=== PATIENT | male | born 1980 | race African-American/Black ===

== ENCOUNTER 2018-07-29 13:05 | Emergency (ER) | payer MEDICAID ==
[~2018-07-29] VITALS: Ht 167.6 cm; Wt 84.0 kg
[2018-07-29] MEDS ORDERED: SODIUM CHLORIDE 0.9% 1,000 ML IV ONE (15:03)
[2018-07-29] MEDS ORDERED: ONDANSETRON HCL 4MG/2ML INJ IV STA (15:03)
[2018-07-29 15:50] LABS: BASOPHILS % 0.7 % (0.0-2.0); EOSINOPHILS % 2.7 % (0.0-5.0); HEMATOCRIT. 44.6 % (42.0-52.0); HEMOGLOBIN. 14.7 g/dL (14.0-18.0); LYMPHOCYTES % 38.9 % (20.0-50.0); MEAN CORPUSCULAR HEMOGLOBIN 28.4 pg (28.0-32.0); MEAN CORPUSCULAR VOLUME 86.3 fL (80.0-94.0); MEAN PLATELET VOLUME 10.3 fl (7.4-10.4); MONOCYTES % 14.9 % (2.0-8.0); NEUTROPHILS % 42.8 % (40.0-76.0); PLATELET 153 x1000/uL (130-400); RED BLOOD CELL COUNT 5.18 mill/uL (4.7-6.1); RED CELL DISTRIBUTION WIDTH 13.8 % (11.6-14.6)
[2018-07-29 15:53] LABS: CHLORIDE 104 mEq/L (98-107)
[2018-07-29 15:55] LABS: INR 1.2; PARTIAL THROMBOPLASTIN TIME 25.3 sec (23.4-31.0); PROTHROMBIN TIME 12.3 sec (9.6-11.0)
[2018-07-29 15:57] LABS: CLARITY URINE CLEAR (CLEAR); COLOR URINE DARK YELLOW (YELLOW); KETONES URINE 3+ (NEGATIVE); LEUKOCYTE ESTERASE URINE NEGATIVE (NEGATIVE); NITRITE URINE NEGATIVE (NEGATIVE); OCCULT BLOOD URINE NEGATIVE (NEGATIVE); PROTEIN URINE TRACE (NEGATIVE); SPECIFIC GRAVITY URINE 1.037 (1.005-1.030)
[2018-07-29 15:57] LABS: ETHANOL BLOOD < 10 mg/dL
[2018-07-29 16:02] LABS: CREATINE KINASE 394 IU/L (39-308)
[2018-07-29 16:05] LABS: CREATINE KINASE MB FRACTION < 1.0 ng/mL (0.5-3.6)
[2018-07-29 16:05] LABS: *BARBITURATES SCREEN URINE NEGATIVE (NEGATIVE)
[2018-07-29 16:06] LABS: *AMPHETAMINES SCREEN URINE NEGATIVE (NEGATIVE); *BENZODIAZEPINES SCREEN URINE NEGATIVE (NEGATIVE); *COCAINE SCREEN URINE NEGATIVE (NEGATIVE); CANNABINOID URINE SCREEN PRESUMTIVE POSITIVE (NEGATIVE); METHADONE URINE SCREEN NEGATIVE (NEGATIVE); OPIATES URINE SCREEN NEGATIVE (NEGATIVE); PHENCYCLIDINE URINE SCREEN NEGATIVE (NEGATIVE)
[2018-07-29 16:18] LABS: MONOTEST NEGATIVE (NEGATIVE)
[2018-07-29 18:10] VITALS: BP 116/62
== END 2018-07-29 18:15 | disposition home or self-care (01) ==
LOC: ER 14:00
DX: E86.0 Dehydration (principal); R11.2 Nausea with vomiting, unspecified; F17.200 Nicotine dependence, unspecified, uncomplicated; F12.10 Cannabis abuse, uncomplicated
CPT/HCPCS: 36415; 71045; 80053; 80305; 80320; 81003; 82550; 82553; 83690; 83880; 84443; 84484; 85025; 85610; 85730; 86308; 93005; 96361; 96374; 99284; J2405; J7030; Z7610; G0480

== ENCOUNTER 2018-10-02 14:32 | Emergency (ER) | payer MEDICAID ==
[~2018-10-02] VITALS: Ht 170.2 cm; Wt 90.7 kg
[2018-10-02] MEDS ORDERED: CEFTRIAXONE SODIUM 250 MG/VIAL IM ONE (18:30)
[2018-10-02] MEDS ORDERED: LIDOCAINE HCL 1% 20ML VIAL (Pyxis) INJ INFIL ONE (18:30)
[2018-10-02] MEDS ORDERED: AZITHROMYCIN 500 MG TABLET PO ONE (18:30)
[2018-10-02 18:50] VITALS: BP 118/64
== END 2018-10-02 18:51 | disposition home or self-care (01) ==
LOC: ER 14:32
DX: Z20.2 Contact with and (suspected) exposure to infections with a predominantly sexual mode of transmission (principal); F12.10 Cannabis abuse, uncomplicated; K21.9 Gastro-esophageal reflux disease without esophagitis; F17.290 Nicotine dependence, other tobacco product, uncomplicated
CPT/HCPCS: 96372; 99283; 99406; J0696; J3490

== ENCOUNTER 2019-11-04 21:53 | Emergency (ER) | payer MEDICAID ==
[~2019-11-04] VITALS: Ht 172.7 cm; Wt 82.5 kg
[2019-11-04 22:27] VITALS: BP 120/44
[2019-11-04] MEDS ORDERED: AZITHROMYCIN 500 MG TABLET PO ONE (23:30)
[2019-11-04] MEDS ORDERED: CEFTRIAXONE SODIUM 250 MG/VIAL IM ONE (23:30)
== END 2019-11-05 01:54 | disposition home or self-care (01) ==
LOC: ER 21:53
DX: S62.627A Displaced fracture of middle phalanx of left little finger, initial encounter for closed fracture (principal); X58.XXXA Exposure to other specified factors, initial encounter; Y93.89 Activity, other specified; Y92.89 Other specified places as the place of occurrence of the external cause; Y99.8 Other external cause status; F12.10 Cannabis abuse, uncomplicated
CPT/HCPCS: 29130; 73130; 96372; 99283; J0696

== ENCOUNTER 2022-07-04 20:31 | Emergency (ER) | payer MEDICAID ==
[~2022-07-04] VITALS: Ht 175.3 cm; Wt 84.0 kg
[2022-07-04 20:49] VITALS: BP 117/59
== END 2022-07-04 21:37 | disposition home or self-care (01) ==
LOC: ER 20:31
DX: F41.9 Anxiety disorder, unspecified (principal); F12.90 Cannabis use, unspecified, uncomplicated
CPT/HCPCS: 99283